=== PATIENT | male | born 1975 | race Caucasian/White ===

== ENCOUNTER 2017-12-21 14:37 | Emergency (ER) | payer BC ==
[~2017-12-21] VITALS: Ht 190.5 cm; Wt 92.5 kg
--- OUTSIDE RECORDS SUMMARY | 2017-12-21 14:42 | XMS REPORT ---
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
[2017-12-21] MEDS ORDERED: LEVO1CAP (15:12)
[2017-12-21] MEDS ORDERED: CITA40TA11 (15:12)
[2017-12-21] MEDS ORDERED: ADAL40PE (15:12)
--- NOTE | 2017-12-21 15:24 | ED Upper Extremity ---
General Chief Complaint: Laceration Stated Complaint: R HAND FINGER LAC Source: patient, other Exam Limitations: no limitations History of Present Illness Date Seen by Provider: December 21, 2017 Time Seen by Provider: 15:14 Initial Comments The patient presents to the ER by private conveyance with a chief complaint that just prior to arrival he did scrape the tip of his fingertip off using a table saw. He got the wound clean with just some water and then hemostatic by applying pressure. He uses Humira for colitis which has been working well for him but he is concern for his risk of infection given his immunocompromised nature. He is not having any fevers chills nausea vomiting diarrhea. He is not on a blood thinner. Allergies and Home Medications Allergies Coded Allergies: No Known Drug Allergies (Unverified , 12/21/17) Patient Home Medication List Home Medication List Reviewed: Yes Constitutional: No chills, No diaphoresis EENTM: No ear pain, No eye pain Respiratory: No cough, No short of breath Cardiovascular: No chest pain, No palpitations Gastrointestinal: No abdominal pain, No constipation, No diarrhea, No nausea Genitourinary: No discharge, No dysuria Musculoskeletal: No back pain, No joint pain Past Uiyfcfu-Budmxe-Czzeoc Hx Patient Social History Alcohol Use: Denies Use Recreational Drug Use: No Smoking Status: Never a Smoker Physical Exam Vital Signs Capillary Refill : General Appearance: WD/WN, no apparent distress HEENT: PERRL/EOMI, pharynx normal Neck: non-tender, normal inspection Cardiovascular: normal peripheral pulses, regular rate, rhythm Respiratory: no respiratory distress, no accessory muscle use Neurologic/Psychiatric: alert, oriented x 3 Skin: normal color, warm/dry, other (distal tip of his second digit of his left hand has the epidermis superficially scraped off of it.) Progress/Results/Core Measures Progress Progress Note : Time: 15:21 Progress Note Tetanus shot and cephalexin for 3 days. Dressed with ZOILA and counseled. Departure Impression Primary Impression: Laceration Disposition: 01 HOME, SELF-CARE Condition: Stable Departure-Patient Inst. Decision time for Depature: 15:23 Referrals: SEBASTIAN DICKEY MD (PCP) Primary Care Physician Patient Instructions: Wound Care (DC) Add. Discharge Instructions: Keep the wound clean with soap and water. Apply a thin layer of Vaseline and a dressing at least for the next 2-3 days while the wound heals. 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 All discharge instructions reviewed with patient and/or family. Voiced understanding. Scripts Cephalexin (Cephalexin) 500 Mg Tablet 500 MG PO QID for 3 Days, #12 TAB 0 Refills Prov: JEFF CHACON 12/21/17 JEFF CHACON December 21, 2017 15:24
[2017-12-21] MEDS ORDERED: CEPH500T PO (15:25)
[2017-12-21] MEDS ORDERED: TETANUS,DIPTH,PERTUSS P/F (BOOSTRIX) 0.5 ML VIAL IM ONE (15:30)
[2017-12-21 16:14] VITALS: BP 118/75
== END 2017-12-21 16:14 | disposition home or self-care (01) ==
LOC: EDUNIT# 14:37 → ER 14:39
DX: S61.211A Laceration without foreign body of left index finger without damage to nail, initial encounter (principal); D84.9 Immunodeficiency, unspecified; Z87.19 Personal history of other diseases of the digestive system; W29.8XXA Contact with other powered hand tools and household machinery, initial encounter
CPT/HCPCS: 90471; 90715; 99284

== ENCOUNTER → 2021-05-02 | Outpatient (CLI) | payer BC, OTHER ==
[~2021-05-02] MED LIST: ADAL40PE; CEPH500T PO; CITA40TA11; LEVO1CAP
--- NOTE | 2021-05-02 09:37 | Diagnostic Imaging Report ---
INDICATION: Post recent fall on to hand, pain. TECHNIQUE: 3 views of the right wrist CORRELATION STUDY: None FINDINGS: There is a comminuted, intra-articular distal right radius fracture. The overall alignment is near-anatomic. There is a minimally displaced ulnar styloid process fracture. The age of this, however, is indeterminate. Carpal bones intact. Prominent soft tissue swelling present. IMPRESSION: 1. Comminuted, relatively nondisplaced intra-articular distal right radius fracture. 2. Ulnar styloid process fracture, age of this indeterminate. Report given to nurse (Zenia) and faxed at 9:36 AM 05/02/2021/cb Dictated by: Dictated on workstation # [id number]
== END ==
LOC: RAD 08:31
PROVIDERS: ATTEND Family Medicine
DX: S52.501A Unspecified fracture of the lower end of right radius, initial encounter for closed fracture (principal); S52.611A Displaced fracture of right ulna styloid process, initial encounter for closed fracture; W19.XXXA Unspecified fall, initial encounter
CPT/HCPCS: 73110